=== PATIENT | female | born 1935 | race Caucasian/White ===

== ENCOUNTER 2017-01-02 11:41 | Emergency (ER) | payer OTHER ==
[~2017-01-02 11:41] MED LIST: ALENDRONATE SOD70 MG PO; ASPERDRINK81 MG PO; ASPIRIN81 M2 PO; FISH OIL 1,0001 CAP PO; FOLIC ACID1 MG PO; LEUCOVORIN CALCI5 MG PO; LEVOTHYROXINE25 MCG PO; METHOTREXATE2.5 MG PO; MOBIC15 MG PO; MULTI-VITAMIN1 EAC1 PO; PERCOCET 5-3251 TAB PO; VITAMIN B-1000 MCG/1 SQ; VITAMIN D 22000 UNIT PO; VITAMIN D35000 UNIT PO
== END 2017-01-02 13:00 | disposition home or self-care (01) ==
LOC: CED 11:41
DX: L03.115 Cellulitis of right lower limb (principal); F17.210 Nicotine dependence, cigarettes, uncomplicated
CPT/HCPCS: 96372; 99283